=== PATIENT | female | born 1995 | race Hispanic/Latino ===

== ENCOUNTER 2018-11-28 18:52 | Emergency (ER) | payer SELFPAY ==
[2018-11-28] MEDS ORDERED: Acetaminophen 500 MG TAB ONE (19:10)
[2018-11-28] MEDS ORDERED: Ondansetron PF 4 MG/2 ML Vial ONE (19:11)
[2018-11-28 19:43] LABS: #Lymphocytes 1.2 thou/uL (1.20-3.40); #Monocytes 0.4 thou/uL (0.11-0.59); #Neutrophils 7.4 thou/uL (1.40-6.50); %Basophils 0.3 % (0.0-1.0); %Eosinophils 0.1 % (0.0-10.0); %Lymphocytes 13.7 % (21.0-51.0); %Monocytes 4.1 % (0.0-10.0); %Neutrophils 81.9 % (42.0-75.0); Hemoglobin 13.1 g/dL (12.0-16.0); Mean Corpuscular HGB CONC 34.9 g/dL (32.0-36.0); Mean Corpuscular Hemoglobin 33.1 pg (27.0-31.0); Mean Platelet Volume 9.7 fL (7.4-10.4); Platelet Count 220 thou/uL (130-400); RBC Distribution Width 10.6 % (11.5-14.5); Red Blood Cell (RBC) Count 3.95 mill/uL (4.20-5.40)
[2018-11-28 20:00] LABS: ALT (SGPT) 24 U/L (8-55); AST (SGOT) 18 U/L (5-34); Alcohol 116 mg/dL (Less than 10); Alkaline Phosphatase 71 U/L (40-150); Anion Gap 12 mmol/L (10-20); BUN (Urea Nitrogen) 7 mg/dL (7.0-18.7); Bilirubin, Total 0.2 mg/dL (0.2-1.2); Calc. Creatinine Clearance 0 mL/min (70-130); Calcium 8.1 mg/dL (7.8-10.44); Carbon Dioxide 22 mmol/L (22-29); Chloride 114 mmol/L (98-107); Estimated GFR-MDRD Greater than 90; Globulin 2.6 g/dL (2.4-3.5); Glucose 98 mg/dL (70-105); Potassium 4.2 mmol/L (3.5-5.1); Protein, Total 6.6 g/dL (6.0-8.3); Sodium 144 mmol/L (136-145)
== END 2018-11-28 21:54 | disposition home or self-care (01) ==
LOC: ERS 18:52
DX: F10.129 Alcohol abuse with intoxication, unspecified (principal); Y90.5 Blood alcohol level of 100-119 mg/100 ml; J45.909 Unspecified asthma, uncomplicated
CPT/HCPCS: 36415; 80053; 80307; 85025; 96361; 96374; J2405

== ENCOUNTER 2019-12-18 21:26 | Emergency (ER) | payer SELFPAY ==
--- NOTE | 2019-12-18 22:55 | ULT ---
Exam: Transabdominal and endovaginal pelvic ultrasound HISTORY:Elevated pain x1 week. Nausea. COMPARISON: None TECHNIQUE: Transabdominal and endovaginal imaging of the pelvis is performed. Ovaries are interrogate d with grayscale, color flow, Doppler imaging and spectral wave form analysis FINDINGS: Uterus: No myometrial masses. Uterus measurin.4 x 4.3 x 6.7 cm. Endometrium: Within the endometrium is a gestational sac. Yolk sac is appreciated. pole is not appreciated. Gestational sac diameter is 0.81 cm corresponding to a gestational age of 5 weeks and 4 days. . Free fluid: None Right ovary: Normal echotexture Right ovary measurement: 2.6 x 2.2 x 1.6 cm Left ovary: Not appreciated Ovarian Doppler: There is vascular flow to the right ovary. IMPRESSION: 1. Gestational sac with yolk sac. No evidence of pole. Gestational age by mean sac diameter is 5 weeks 4 day. 2. Follow-up ultrasound and serial beta hCG is recommended.
[2019-12-19 00:27] LABS: Bilirubin Negative (Negative); Blood, Urine Negative (Negative); Clarity Turbid (Clear); Glucose, Urine (Dipstick) Normal (Negative); Leukocyte 500 Leu/uL (Negative); Nitrite Negative (Negative); Protein, Urine (Dipstick) 10 mg/dL (Neg-Trace); RBC/HPF 0-3 HPF (0-3); Urobilinogen Normal mg/dL (Less than 2)
[2019-12-19 00:33] LABS: Bacteria/HPF 1+ HPF (None Seen)
== END 2019-12-19 00:40 | disposition home or self-care (01) ==
LOC: ERS 21:26
DX: O23.41 Unspecified infection of urinary tract in pregnancy, first trimester (principal); O99.511 Diseases of the respiratory system complicating pregnancy, first trimester; J45.909 Unspecified asthma, uncomplicated; Z3A.01 Less than 8 weeks gestation of pregnancy
CPT/HCPCS: 36415; 76856; 81003; 81015; 84702

== ENCOUNTER 2020-04-14 15:41 | Day surgery (SDC) | payer SELFPAY ==
[2020-04-14 16:09] VITALS: BMI 23.4
[2020-04-14] MEDS ORDERED: hydrALAZINE 20 MG/ML VIAL SLOW IVP PRN (16:42)
--- NOTE | 2020-04-14 16:56 | PDOC.FPROB ---
FMR OB H&P: HPI - History of Present Illness Chief Complaint: Lower Abdominal Pain Indentification: at 22.5 wks, ELISSA 08/13/20 History of Present Illness: Pt is a 25 yo at 22.5 weeks, ELISSA 08/13, who presents with lower abdominal pain. Started around 1300 today. Pain is sharp, intermittent, lasting 2 mins and occurs every 2-3 minutes. She denies worse with positional change. Initial pain was 10/10 to 4/10. Endorsed vaginal discharge - white, not foul smelling. She was diagnosed with a vaginal infection 1 month requirng a 7 day treatment. Denies vaginal bleeding, LOF, EDEN, vision changes, chest pain, sob, LE edema, RUQ pain, hematuria, dysuria, recent vaginal intercourse. Pt has history of labor at 36 wks. 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 History: Hx of vaginal infection 1 month ago s/p treatment - Surgical History Sx History: denies - Social History Social History: Denies tobacco, alcohol, drugs; states she has family support at home - Family History Family History: non-contributory FMR OB H&P: Medications - Current Home Medications: Medication Instructions Recorded Confirmed Type Clotrimazole [Clotrimazole 1% 1 appful VAG HS 7 Days #7 appful 04/14/20 Rx Vaginal Cream] Nitrofurantoin Monohyd/M-Cryst 100 mg PO BID 5 Days #10 capsule 04/14/20 Rx [Macrobid 100 mg Capsule] Pnv No.121/Iron/Folic Acid 1 each PO 04/14/20 History [ Multivitamin Tablet] Allergies/Adverse Reactions: Allergies Allergy/AdvReac Type Severity Reaction Status Date / Time No Known Allergies Allergy Verified 04/14/20 16:04 FMR OB H&P: ROS - Review of Systems General: denies: fever/chills, weight/appetite/sleep changes Eyes: denies: vision changes, scotomas ENT: denies: nasal congestion, rhinorrhea Cardiovascular: denies: chest pain, palpitation, edema Respiratory: denies: cough, congestion, shortness of breath Gastrointestinal: reports: abdominal pain. denies: diarrhea, constipation Genitourinary (Female): denies: dysuria, hematuria Musculoskeletal: denies: pain, stiffness Neurologic: denies: numbness, syncope Integumentary: denies: rash, lesions Psychological: denies: depression, anxiety FMR OB H&P: Vital Signs - Maternal Vital signs: BP WNL, pulse WNL, afebrile - Heart Tones Variability: moderate Acceleration: present Deceleration: variable [place] contractions every: q2-3 mins FMR OB H&P: Physical Exam - Physical Exam General: NAD, awake, alert and oriented HEENT: PERRLA, EOMI Neck: FROM, trachea midline, no JVD Heart: RRR, normal S1/S2, no edema General: CTAB, no respiratory distress, good air movement Abdomen: soft, bowel sound present Deviation from normal: mild tenderness to deep palpation in lower quadrants Musculoskeletal: normal gait and station, pulses present Neurological: cranial nerves II through XII intact, sensation to pain,touch and proprioception grossly normal Skin: no rash, no jaundice Lymphatic: no purpura, no petechia Psychiatric: intact recent and remote memory, good judgement and insight FMR OB H&P: A/P - Problem List (1) Second trimester Status: Acute Code(s): Z34.92 - ENCNTR FOR SUPRVSN OF NORMAL PREG, UNSP, SECOND TRIMESTER (2) History of labor Status: Acute Code(s): Z87.51 - PERSONAL HISTORY OF PRE-TERM LABOR (3) Abdominal pain affecting Status: Acute Code(s): O26.899 - OTH RELATED CONDITIONS, UNSPECIFIED TRIMESTER; R10.9 - UNSPECIFIED ABDOMINAL PAIN Disposition: Pt is a 25 yo at 22.5 weeks, ELISSA 08/13, who presents for lower abdominal pain: # Lower abdominal pain Pt initially had intense pain then remitted on my exam. Pt's physical exam with Dr. Hess/Jean Marie resulted in severe abdominal pain. Currently will work pt up for infection, abruption, dehydration and less likely labor. Dr. Hess's spec exam revealed copious white discharge. - pending CBC, VP3, UA, GCCH - pending U/S - start fluids - monitor for worsening pain requiring medications # Second trimester - monitored initially, contractions q2-3 mins, variables present # Hx of labor Dispo: pending work up Discussion: Date/Time: 04/14/20 176 This H&P was discussed with Dr. Aj and Dr. Hess who agree with the above documentation and plan. Addendum - Attending - Attending Attestation Date/Time: 04/16/2058 I personally evaluated the patient and discussed the management with Dr. Su I agree with the History, Examination, Assessment and Plan documented above with any addition or exceptions noted below. Pt on exam had significant periumbilical tenderness, and less significant tenderness in her cornual regions. pt is afebrile, has neg gc/ct, yeast on vp3. and u/s not demonstrating any obvious signs of abruption. wc count slightly elevated with a left shift possible suggesting inflammatory response to something infectious or otherwise. PT was observed for 4-5hours without any progression of symptoms. contractions and pain have dissipated. sve closed. PT was discharged home with close follow up in the pnc.
[2020-04-14] MEDS ORDERED: Lactated Ringer's 1,000 ML IV SCH ×2 (17:00)
[2020-04-14 17:55] LABS: #Lymphocytes 1.2 thou/uL (1.20-3.40); #Monocytes 0.6 thou/uL (0.11-0.59); #Neutrophils 12.9 thou/uL (1.40-6.50); %Basophils 0.1 % (0.0-1.0); %Eosinophils 0.1 % (0.0-10.0); %Lymphocytes 8.2 % (21.0-51.0); %Neutrophils 87.6 % (42.0-75.0); Hemoglobin 12.4 g/dL (12.0-16.0); Mean Corpuscular HGB CONC 33.7 g/dL (32.0-36.0); Mean Corpuscular Hemoglobin 33.4 pg (27.0-31.0); Platelet Count 205 thou/uL (130-400); RBC Distribution Width 12.2 % (11.5-14.5); Red Blood Cell (RBC) Count 3.71 mill/uL (4.20-5.40); White Blood Cell (WBC) Count 14.7 thou/uL (4.8-10.8)
--- NOTE | 2020-04-14 18:29 | ULT ---
OB ULTRASOUND: HISTORY: Possible placental abruption. TECHNIQUE: Sagittal and transverse imaging of the gravid uterus is performed FINDINGS: Cervix is closed and measures 3.4 to 3.5 cm Breech presentation Placenta: Anterior Previa: None heart tones: 128 bpm Amniotic fluid index 16.8 cm biometry: BPD 5.46 cm, 22 weeks 4 days Head circumference 20.18 cm, 22 weeks 2 days Abdominal circumference 18.33 cm, 23 weeks 1 day Femur length 3.81 cm, 22 weeks 1 day Average age by sonography is 22 weeks 5 days Estimated weight is 525 g IMPRESSION: 1. Single intrauterine gestation. Breech presentation. 2. heart tones: 128 bpm 3. Anterior placenta. No previa. No evidence of placental abruption. Cervix is closed and measures 3. 4 to 3.5 cm Transcribed Date/Time: 04/14/2020 6:46 PM
[2020-04-14 19:26] LABS: Bilirubin Negative (Negative); Blood, Urine Negative (Negative); Clarity Clear (Clear); Glucose, Urine (Dipstick) Normal (Negative); Leukocyte Negative Leu/uL (Negative); Nitrite Negative (Negative); Protein, Urine (Dipstick) Negative (Neg-Trace); RBC/HPF None Seen HPF (0-3); Squamous Epithelial 0-3 HPF (0-3); Urobilinogen Normal mg/dL (Less than 2); WBC/HPF 0-3 HPF (0-3)
[2020-04-14 19:28] LABS: Bacteria/HPF 1+ HPF (None Seen)
--- NOTE | 2020-04-14 21:25 | PDOC.BPN ---
- Brief Progress Note 19:30 on 04/14 OB ultrasound with no sign of abruption, Cervix closed and 3.5 cm, ROSE MARIE 16 cm, S= D. UA with only 1+ bacteria, no LE's, no nitrites. WBC 14.7 with 80% neutrophils VP3 with meggan Patient's contractions have settled down. She is still experiencing some abdominal pain, but the pain does not come and go like it did before. She states that she did have a vaginal yeast infection she was treated for a month ago. She was not symptomatic at that time, she states she had a pelvic exam where it was noted. Patient's abdominal exam with mild tenderness throughout, but no rebound or guarding on my exam. Patient did receive 1L LR and LR @ 125 mL /hr. Will treat patient for suspected UTI with elevated WBC and left shift and 1+ bacteria on UA. Macrobid sent to pharmacy. Urine culture pending. Sent in script for clotrimazole cream to pharmacy to treat yeast infection. If yeast infection persists, patient may need second treatment or consideration of fluconazole after risk/benefit conversation. GC/CT pending at this time. Return precautions provided to include worsening abdominal pain, N/V, fever, chills. Cervix closed and thick. No evidence of pre-viable labor at this time. Patient agreeable to plan as discussed. Kat Friedman, DO PGY-3
[2020-04-15 23:26] LABS: Chlamydia by PCR Not Detected (NotDetected); GC by PCR Not Detected (NotDetected)
== END 2020-04-14 20:50 | disposition home or self-care (01) ==
LOC: L&D/OP 15:41
DX: O99.89 Other specified diseases and conditions complicating pregnancy, childbirth and the puerperium (principal); R10.815 Periumbilic abdominal tenderness; O98.812 Other maternal infectious and parasitic diseases complicating pregnancy, second trimester; B37.3 Candidiasis of vulva and vagina; O09.212 Supervision of pregnancy with history of pre-term labor, second trimester; Z3A.22 22 weeks gestation of pregnancy
CPT/HCPCS: 76815; 81003; 85025; 87086; 87480; 87491; 87510; 87591; 87660; 96360; 96361; 99284